=== PATIENT | male | born 1995 | race African-American/Black ===

== ENCOUNTER 2018-04-25 16:59 | Emergency (ER) | payer OTHER ==
[~2018-04-25] VITALS: Ht 167.6 cm; Wt 65.3 kg
[2018-04-25 17:08] VITALS: BP 116/59
--- NOTE | 2018-04-25 18:04 | PHYS DOC ---
Past History Past Medical History: No Pertinent History Past Surgical History: Other Alcohol Use: None Drug Use: None Adult General Chief Complaint Chief Complaint: SORE THROAT HPI HPI 22-year-old male presents with 3 day history of sore throat. Patient was in his normal state of health when he began have a sore throat after working out at the gym. It has progressively gotten worse over last couple days. He feels it might be slightly better today after taking Tish-Altura, but the pain returns on the medicine wears off. He has not had a cough or fever at home. He denies nausea, vomiting, diarrhea. She works in a presented is in the so sick contacts are possible. Review of Systems Review of Systems Constitutional: Denies fever or chills [] Eyes: Denies change in visual acuity, redness, or eye pain [] HENT: sore throat [] Respiratory: Denies cough or shortness of breath [] Cardiovascular: No additional information not addressed in HPI [] GI: Denies abdominal pain, nausea, vomiting, bloody stools or diarrhea [] : Denies dysuria or hematuria [] Musculoskeletal: Denies back pain or joint pain [] Integument: Denies rash or skin lesions [] Neurologic: Denies headache, focal weakness or sensory changes [] Endocrine: Denies polyuria or polydipsia [] All other systems were reviewed and found to be within normal limits, except as documented in this note. Allergies Allergies Allergies Uncoded Allergies Type Severity Reaction Last Updated Verified Seafood Allergy Severe 04/25/18 Physical Exam Physical Exam Constitutional: Well developed, well nourished, no acute distress, non-toxic appearance. [] HENT: Normocephalic, atraumatic, bilateral external ears normal, oropharynx erythematous without exudate, nose normal. [] Eyes: PERRLA, EOMI, conjunctiva normal, no discharge. [] Neck: Normal range of motion, no tenderness, supple, no stridor. [] Cardiovascular:Heart rate regular rhythm, no murmur [] Lungs & Thorax: Bilateral breath sounds clear to auscultation [] Abdomen: Bowel sounds normal, soft, no tenderness, no masses, no pulsatile masses. [] Skin: Warm, dry, no erythema, no rash. [] Back: No tenderness, no CVA tenderness. [] Extremities: No tenderness, no cyanosis, no clubbing, ROM intact, no edema. [] Neurologic: Alert and oriented X 3, normal motor function, normal sensory function, no focal deficits noted. [] Psychologic: Affect normal, judgement normal, mood normal. [] Current Patient Data Vital Signs Vital Signs Date Time Temp Pulse Resp B/P (MAP) Pulse Ox O2 Delivery O2 Flow Rate FiO2 04/25/18 17:08 98.4 92 20 98 Room Air Lab Results Laboratory Tests Test 04/25/18 17:27 Group A Streptococcus Rapid Negative (NEGATIVE) EKG EKG [] Radiology/Procedures Radiology/Procedures [] Course & Med Decision Making Course & Med Decision Making Pertinent Labs and Imaging studies reviewed. (See chart for details) Patient's rapid strep is negative. This is likely a viral URI. I have advised supportive care. He is stable for discharge at this time. [] Dragon Disclaimer Dragon Disclaimer This electronic medical record was generated, in whole or in part, using a voice recognition dictation system. Departure Departure: Referrals: ELEANOR MUNOZ PA-C (PCP) KARTHIK BREWER DO Apr 25, 2018 18:04
== END 2018-04-25 18:05 | disposition home or self-care (01) ==
LOC: ER 16:59
DX: J02.9 Acute pharyngitis, unspecified (principal); Z91.013 Allergy to seafood
CPT/HCPCS: 87070; 87880; 99283

== ENCOUNTER 2018-08-08 17:29 | Emergency (ER) | payer OTHER ==
[~2018-08-08] VITALS: Ht 167.6 cm; Wt 63.5 kg
--- NOTE | 2018-08-08 17:32 | ED.ADGEN ---
Past History Past Medical History: No Pertinent History Past Surgical History: Other Alcohol Use: None Drug Use: None Adult General Chief Complaint Chief Complaint ".. I was boxing... and I threw a punch... and over extend my punch.. and felt something tear in my Rt. shoulder... 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 Patient also has pain in right tricep area. Patient unable to hold arm extended consistent with injury to rotator cuff. Patient's distal neurovascular intact. Patient does have sensory in deltoid area. Does have a surgical scars on right shoulder from previous rotator cuff and labrum repair. Patient is right-hand dominant. No other injuries reported. Patient is normally healthy. Patient follows at [facility]. Review of Systems Review of Systems Constitutional: Denies fever or chills [] Eyes: Denies change in visual acuity, redness, or eye pain [] HENT: Denies nasal congestion or sore throat [] Respiratory: Denies cough or shortness of breath [] Cardiovascular: No additional information not addressed in HPI [] GI: Denies abdominal pain, nausea, vomiting, bloody stools or diarrhea [] : Denies dysuria or hematuria [] Musculoskeletal: Denies back pain or joint pain []except complaints of right shoulder pain Integument: Denies rash or skin lesions [] Neurologic: Denies headache, focal weakness or sensory changes [] Endocrine: Denies polyuria or polydipsia [] All other systems were reviewed and found to be within normal limits, except as documented in this note. Family History Family History Noncontributory to presentation Current Medications Current Medications Current Medications Medications (Trade) Dose Ordered Sig/Jacinto Start Time Stop Time Status Last Admin Dose Admin Ketorolac Tromethamine (Toradol Im) 60 mg 1X ONCE 08/08/18 18:45 08/08/18 18:46 DC 08/08/18 18:59 60 MG Allergies Allergies Allergies Uncoded Allergies Type Severity Reaction Last Updated Verified Seafood Allergy Severe 04/25/18 Physical Exam Physical Exam Constitutional: Well developed, well nourished, moderately acute distress, non- toxic appearance. [] HENT: Normocephalic, atraumatic, bilateral external ears normal, oropharynx moist, no oral exudates, nose normal. [] Eyes: PERRLA, EOMI, conjunctiva normal, no discharge. [] Neck: Normal range of motion, no tenderness, supple, no stridor. [] Cardiovascular:Heart rate regular rhythm, no murmur [] Lungs & Thorax: Bilateral breath sounds clear to auscultation [] Abdomen: Bowel sounds normal, soft, no tenderness, no masses, no pulsatile masses. [] Skin: Warm, dry, no erythema, no rash. [] Back: No tenderness, no CVA tenderness. [] Extremities: No tenderness, no cyanosis, no clubbing, ROM intact, no edema. [] Except findings in right shoulder as per history of present illness Neurologic: Alert and oriented X 3, normal motor function, normal sensory function, no focal deficits noted. [] Psychologic: Affect normal, judgement normal, mood normal. [] Current Patient Data Vital Signs Vital Signs Date Time Temp Pulse Resp B/P (MAP) Pulse Ox O2 Delivery O2 Flow Rate FiO2 08/08/18 17:44 98.6 79 16 98 Room Air EKG EKG [] Radiology/Procedures Radiology/Procedures My interpretation of x-ray right shoulder shows no obvious fracture dislocation. Does have bony scars from previous surgical repair of shoulder does have findings of some arthritic changes. No obvious fracture or dislocation. See formal report when available.[] Course & Med Decision Making Course & Med Decision Making Pertinent Labs and Imaging studies reviewed. (See chart for details) Patient use ice packs. Rest. Wear sling. Take arm out of sling 4 times a day for passive range of motion. Patient take Tylenol and ibuprofen for pain. For marked pain may take Vicoprofen up 4 times a day. Patient to follow-up with primary care and orthopedics. Patient return if any concerns. [] Final Impression Final Impression 1. Shoulder Injury[]-overextension injury Suspect partial tricep tear or strain. Does have findings of possible re-injury to his rotator cuff. Dragon Disclaimer Dragon Disclaimer This electronic medical record was generated, in whole or in part, using a voice recognition dictation system. Discharge Summary Visit Information Final Diagnosis Problems Medical Problems: (1) Injury of shoulder Status: Acute Brief Hospital Course Allergies Allergies Uncoded Allergies Type Severity Reaction Last Updated Verified Seafood Allergy Severe 04/25/18 Vital Signs Vital Signs Date Time Temp Pulse Resp B/P (MAP) Pulse Ox O2 Delivery O2 Flow Rate FiO2 08/08/18 17:44 98.6 79 16 98 Room Air Brief Hospital Course Mr. Ramirez is a 23 old male who presented with right shoulder injury Discharge Information Condition at Discharge: Improved, Stable Disposition/Orders: D/C to Home Dischare Medications Current Medications Ketorolac Tromethamine (Toradol Im) 60 mg 1X ONCE IM Last administered on at 18:59; Admin Dose 60 MG; Start 08/08/18 at 18:45; Stop 08/08/18 at 18:46; Status DC Active Scripts Active Acetaminophen 500 Mg Tablet 1,000 Mg PO QIDPRN PRN Ibuprofen 400 Mg Tablet 600 Mg PO QIDPRN PRN Hydrocodone-Ibuprofen 7.5-200 (Hydrocodone/Ibuprofen) 1 Each Tablet 1 Tab PO PRN Q6HRS PRN Dragon Disclaimer This chart was dictated in whole or in part using Voice Recognition software in a busy, high-work load, and often noisy Emergency Department environment. It may contain unintended and wholly unrecognized errors or omissions. DIPIKA LINARES MD Aug 08, 2018 17:32
[2018-08-08 17:44] VITALS: BP 116/64
--- NOTE | 2018-08-08 18:13 | RAD ---
EXAM: 1. Chest 2 views. 2. Right shoulder 3 views. HISTORY: Chest and right shoulder pain after injury. COMPARISON: None. FINDINGS: There are no confluent infiltrates. There is no pneumothorax or pleural effusion. The heart is not enlarged. There are changes of bicipital tenodesis. A small inferior humeral osteophyte is consistent with mild osteoarthritis, premature for patient age. An osseous density along the posterior aspect of the greater tuberosity may reflect a Hill-Sachs fragment. An osseous Bankart fracture is also suspected. The acromial clavicular joint is unremarkable. IMPRESSION: 1. No confluent infiltrates. 2. Hill-Sachs and osseous Bankart fracture fragments may not be acute. Correlate for an acute dislocation/relocation patient to differentiate. 3. Mild glenohumeral osteoarthritis, premature for patient age. Electronically signed by: Merna Alejandra MD (08/08/2018 6:10 PM) [facility] [place]
--- NOTE | 2018-08-08 18:13 | RAD ---
EXAM: 1. Chest 2 views. 2. Right shoulder 3 views. HISTORY: Chest and right shoulder pain after injury. COMPARISON: None. FINDINGS: There are no confluent infiltrates. There is no pneumothorax or pleural effusion. The heart is not enlarged. There are changes of bicipital tenodesis. A small inferior humeral osteophyte is consistent with mild osteoarthritis, premature for patient age. An osseous density along the posterior aspect of the greater tuberosity may reflect a Hill-Sachs fragment. An osseous Bankart fracture is also suspected. The acromial clavicular joint is unremarkable. IMPRESSION: 1. No confluent infiltrates. 2. Hill-Sachs and osseous Bankart fracture fragments may not be acute. Correlate for an acute dislocation/relocation patient to differentiate. 3. Mild glenohumeral osteoarthritis, premature for patient age. Electronically signed by: Merna Alejandra MD (08/08/2018 6:10 PM) [facility] [place]
[2018-08-08] MEDS ORDERED: KETOROLAC 60 MG/2 ML VIAL. IM ONE (18:45)
[2018-08-08] MEDS ORDERED: HYDR-1179 PO (18:48)
[2018-08-08] MEDS ORDERED: ACET500T68 PO (18:48)
[2018-08-08] MEDS ORDERED: IBUP400T18 PO (18:48)
== END 2018-08-08 19:23 | disposition home or self-care (01) ==
LOC: ER 17:29
DX: S49.91XA Unspecified injury of right shoulder and upper arm, initial encounter (principal); R07.89 Other chest pain; Z91.013 Allergy to seafood; X50.9XXA Other and unspecified overexertion or strenuous movements or postures, initial encounter; Y93.71 Activity, boxing; Y92.89 Other specified places as the place of occurrence of the external cause; Y99.8 Other external cause status
CPT/HCPCS: 71046; 73030; 96372; 99283; J1885